=== PATIENT | male | born 1975 | race African-American/Black ===

== ENCOUNTER 2016-05-05 05:40 | Emergency (ER) | payer OTHER ==
[~2016-05-05] VITALS: Ht 177.8 cm; Wt 72.7 kg
[2016-05-05 05:46] VITALS: BP 115/79; PULSE 65; RESP 16; O2SAT 99
[2016-05-05 06:14] LABS: BASOPHILS % (AUTO) 0.2 % (0-3); EOSINOPHILS % (AUTO) 0.9 % (0-5); MONOCYTES % (AUTO) 10.9 % (4-12); Mean Corpuscular Hemoglobin 27.8 pg (27.0-35.0); NEUTROPHILS % (AUTO) 55.1 % (40-74); Platelet Count 144 bil/L (150-400)
[2016-05-05 06:33] LABS: TROPONIN T 0.01 ug/L (0.0-0.011)
[2016-05-05 06:44] LABS: Magnesium 1.9 mg/dL (1.6-2.6)
--- NOTE | 2016-05-05 07:45 | ED.REPORT ---
HPI-Chest Pain 40 and Over Date of Service May 05, 2016 ED Provider: CintiaSukhdev Singh DO 40yoM with no pertinent past medical history presents with 2 days of right sided chest pain. The pain is described as sharp rated 10/10 and lasting for 3 seconds at a time. He feels completely normal when he does not have his sharp pain. The frequency of the attacks is getting gradually worse currently approximately 5 times per hour. The patient states that movement and deep inspiration make the pain worse. He has never had anything like this happen to him before. He denies history of kidney or gallstones. He denies any recent illness. He has has a random cough which isn't getting worse, and is unproductive. He has been stooling more than normal but denies diarrhea constipation or nausea vomiting. Nursing Notes Stated Complaint: RIGHT SIDE PAIN Chief Complaint: Chest Pain Nursing Notes Reviewed: Yes Allergies: Coded Allergies: No Known Allergies (Unverified , 05/05/16) Scheduled PRN Methocarbamol (Methocarbamol) 500 Mg Tablet 500 MG PO Q6H PRN PRN For Spasm Naproxen (Naproxen) 500 Mg Tab 500 MG PO BID PRN PRN For Pain Miscellaneous Medications ([None]) General Time Seen by MD: 06:10 Chief Complaint Chest pain Hx Obtained From: Patient Sudden in Onset?: Yes Onset Occurred: 2 days ago Location: : Chest right Quality: Sharp, Stabbing Radiation: : Does not radiate Severity: Current: No pain currently Severity: Maximum: Pain level 10 out of 10 Exacerbated by: Deep breath, Movement Pertinent Negative: Relieved by nothing Recent Healthcare: No recent doctor visit, No recent hospitalization Similar Sx Previous: No Risk Factors )( PE Risk Stratification No Coagulation Disorder, No Estrogen Medicine / BCP's, No [place], No Immobilization, No Malignancy, No , No , No Previous DVT, No Previous PE, No Surgery Last 60 Days, No Trauma Risk factors reviewed Well's Criteria for PE Well's PE Score: 0-2 pts (low risk 3.6%) Past Medical History Past Medical History Notes: Denies pmsh. Reports hx of gerd, with spicy food, no problems with nsaids. Past Medical History none reported Past Surgical History denies Smoking History Current Every Day Smoker Social History Alcohol Use: "Social" Drug Use: Denies drug use Occupation lives with . no work no school. Ambulatory Status Independent Review of Systems Basic Review of Systems Eyes: Vision NL, No discharge ENT: Hearing NL, No pain, No nasal congestion, No pharyngeal pain : No dysuria, No frequency Hematologic: No bleeding, No bruising Endocrine: No cold intolerance, No heat intolerance, No weight gain, No weight loss Allergy / Immune: No allergy Constitutional: Denies: Chills, Fever Respiratory: Reports: Pleuritic pain, Denies: Hemoptysis, Shortness of breath Cardiovascular: Denies: Edema, Palpitations GI: Denies: Abdominal pain, Bloody/tarry stool, Constipation, Diarrhea, Hematemesis, Hematochezia, Melena, Nausea, Vomiting Musculoskeletal: Denies: Extremity swelling, Neck pain Skin: Denies Diaphoresis, Denies Swelling, Denies Unexplained bruises Neurologic: Denies: Dizziness, Headache Psychiatric: Denies: Change mental status, Confusion Complete sys rev & neg: except as marked. Physical Exam Initial Vital Signs Vital Signs (First) Date Time Temp Pulse Resp B/P Pulse Ox O2 Delivery O2 Flow Rate FiO2 05/05/16 05:46 36.4 65 16 115/79 99 Room Air Initial VS: Reviewed Head / Eyes: Atraumatic, Normocephalic, PERRL ENT: Mucous membranes moist, Conjunctiva normal, No scleral icterus Neck: Supple, Non-tender, Full range of motion Back: No CVA tenderness Lymphatic: No lymphadenopathy Extremities: Vascular intact, Neuro intact, No swelling, No tenderness Skin: Warm, Dry, No cyanosis Neurologic: Alert, Oriented, Nonfocal Psychiatric: Mood/affect normal, Behavior normal, Normal thought content General/Constitutional: Awake, Alert, Well appearing Distress / Hydration: Positive: Distress mild Respiratory / Chest: Atraumatic, Breath sounds NL, Breath sounds = bilat, No respiratory distress, No rales, No rhonchi, No wheezing, No stridor, No chest wall deformity, No crepitus Chest Wall / Ribs: Positive: Chest tender lateral R Cardiovascular: Heart rate NL, Regular rhythm, Heart sounds NL, No murmurs, Peripheral circulation NL, Pulses = bilaterally, No gross BP differential Abdomen: Atraumatic, No rebound, No hernia, No palpable mass, No pulsatile mass Tenderness/Guarding/Rebound: Positive: Guarding voluntary Bowel Sounds / Distention: Positive: Bowel sounds hyperactive, Distention mild Neck: Supple, Full range of motion, No swelling, Non-tender, No masses, No JVD Lower Extremity / Pelvis / MS: Inspection NL, No swelling, Non-tender, No erythema, No deformity, Neurologic intact, Vascular intact, No edema Skin: Color NL, Warm, Dry, Turgor NL Head / Eyes: Atraumatic, PERRL, No periorbital swelling, No scleral icterus, Conjunctiva NL, Eyelids NL ENT: Atraumatic, Airway patent, Mucous membranes moist, Pharynx NL Interpretation & Diagnostics Lab Results Interpretation Result Diagram: 05/05/16 0604 05/05/16 0604 Test 05/05/16 06:04 05/05/16 07:33 White Blood Count 6.6th/mm3 (3.8-10.1) Red Blood Count 4.78mil/mm3 (4.40-5.80) Hemoglobin 13.3g/dL (13.8-17.2) Hematocrit 39.2% (41.0-50.0) Mean Corpuscular Volume 82.0fL (81-100) Mean Corpuscular Hemoglobin 27.8pg (27.0-35.0) Mean Corpuscular Hemoglobin Concent 33.9% (32.0-37.0) Red Cell Distribution Width 14.1% (12.3-15.4) Platelet Count 144bil/L (150-400) Neutrophils (%) (Auto) 55.1% (40-74) Lymphocytes (%) (Auto) 32.7% (14-46) Monocytes (%) (Auto) 10.9% (4-12) Eosinophils (%) (Auto) 0.9% (0-5) Basophils (%) (Auto) 0.2% (0-3) D-Dimer 0.6mg/L (<0.50) Sodium Level 139mEq/L (134-144) Potassium Level 4.3mEq/L (3.5-5.2) Chloride Level 104mEq/L (97-108) Carbon Dioxide Level 23mmol/L (18-29) Blood Urea Nitrogen 23mg/dL (6-24) Creatinine 0.96mg/dL (0.76-1.27) Estimat Glomerular Filtration Rate 92mL/min (>59) Glucose Level 120mg/dL (60-99) Calcium Level 8.6mg/dL (8.5-10.1) Magnesium Level 1.9mg/dL (1.6-2.6) Total Bilirubin 0.2mg/dL (0.0-1.2) Aspartate Amino Transf (AST/SGOT) 17U/L (0-50) Alanine Aminotransferase (ALT/SGPT) 12U/L (0-44) Alkaline Phosphatase 74U/L (25-150) Troponin T 0.010ug/L (0.0-0.011) Total Protein 6.6g/dL (6.4-8.4) Albumin 4.1g/dL (3.4-5.0) Hold Mullen Top Tube Received (Received) Re-Eval/Medical Decision Med Decision/Clinical Course 40yoM with likely benign musculoskeletal complaint however the patient denies trauma to the area or recent increased physical activity. CBC and CMP are unremarkable. Cardiac causes ruled out with low likelihood and negative EKG changes and negative troponin. Low likelihood of gallstone disease or kidney stone disease given presentation of symptoms with pain in axillary region only lasting seconds at a time. Patient is low risk on Well Criteria for PE. D-dimer is mildly elevated and this was discussed with the patient who has stated that he understands he it at low risk for PE, however the diagnosis of PE is serious so he will return to the ED if he becomes increasingly short of breath. He will follow up with PCP in 1 week without total resolution. Patient given IV Toradol and Ativan for probable muscle spasm with some initial improvement. Will be sent will Skelaxin and naproxen and told to follow up with PCP without resolution of symptoms. Counseled Regarding: Diagnosis, Lab results, Need for follow-up, When/why to return to ED Discharge & Departure Primary Impression: Non-cardiac chest pain Additional Impression: Costochondral chest pain Disposition: Home Discharge Condition All VS Reviewed: Yes Condition: Stable Patient Instructions: Costochondritis (ED), Chest Pain (ED) Additional Instructions: During you visit to [facility] Emergency Department we obtained blood work for infectious markers, blood count levels, and electrolytes. We obtained xray imaging of your chest. All your lab values were within normal limits and your imaging showed no acute processes or abnormalities. Your vital signs were stable and safe for discharge. We will send you home with - Skelaxin medication for muscle spasm Muscle relaxants can cause sedation and drowsiness so when taking Skelaxin medications DO NOT drive, DO NOT drink alcohol, DO NOT take extra acetaminophen (Tylenol). You should also try taking over the counter Ibuprofen or Aleve for pain as directed on the bottle. Do not hesitate to call emergency services or your primary care physician if you experience any of the following. - new and worsening fevers. - Uncontrolled vomiting or diarrhea - Severe hypotension. - dizziness or loss of consciousness. - worsening chest pain or severe shortness of breath. If you symptoms do not improve or resolve after taking several days of Skelaxin muscle relaxants and Ibuprofen or Aleve please contact the [facility] residency clinic or the [facility] for an ED follow up with a primary care physician in 1-2 weeks time following your emergency department visit. If your symptoms resolve completely on the above medications no follow up is necessary. Referrals: [facility] (PCP) [facility] Attending Statement The patient was seen and examined together with Dr. Pulliam on 05/05/16 and I have added additional information to the note above. copies to: [facility]; [facility] Jason Pulliam DO May 05, 2016 07:02 Sukhdev Chamberlain DO May 05, 2016 09:23
[2016-05-05] MEDS ORDERED: NPR500T PO (07:48)
[2016-05-05] MEDS ORDERED: ROB500 PO (07:48)
[2016-05-05 08:48] VITALS: BP 101/67; PULSE 64; RESP 20; O2SAT 97
--- NOTE | 2016-05-05 10:17 | DRSVH ---
PROCEDURE: X-RAY CHEST ONE VIEW, PORTABLE ([id number]) INDICATIONS: right rib pain TECHNIQUE: One view of the chest was acquired. COMPARISON: None. FINDINGS: Surgical changes and devices: None. Lungs and pleura: No pleural effusions or pneumothorax. Bibasilar airspace opacities are present ot herwise lungs are clear. Mediastinum: Mediastinal contours appear normal. Heart size is normal. Bones and chest wall: No suspicious bony lesions. Overlying soft tissues appear unremarkable. IMPRESSION: Bibasilar atelectasis versus aspiration or pneumonia. Correlate clinically. Dictated by: Orlando Davis [facility] Interpreted: Krystal Mariee MD on 05/05/2016 at 10:16 Transcribed by: REBECCA on 05/05/2016 at 10:16 Approved by: Krystal Mariee M.D. on 05/05/2016 at 16:28
== END 2016-05-05 08:49 | disposition home or self-care (01) ==
LOC: SED 05:40
DX: R07.1 Chest pain on breathing (principal); F17.210 Nicotine dependence, cigarettes, uncomplicated
CPT/HCPCS: 36415; 71010; 80053; 81002; 82948; 83735; 84484; 85025; 85379; 93005; 96374; 96375; 99285; J2060